=== PATIENT | female | born 1950 | race Caucasian/White ===

== ENCOUNTER 2017-09-28 06:55 | Day surgery (SDC) | payer BC, MEDICARE ==
[2017-09-27 15:26] LABS: BASOPHILS % (AUTO) 0.7 % (0.0-5.0); EOSINOPHILS % (AUTO) 2.2 % (0.0-8.0); HEMATOCRIT 36.6 % (36-48); LYMPHOCYTES % (AUTO) 26.5 % (21.0-51.0); MEAN CORPUSCULAR HEMOGLOBIN 31.5 pg (27.0-33.0); MEAN CORPUSCULAR HGB CONC 34.7 g/dL (32.0-36.0); MEAN CORPUSCULAR VOLUME 90.9 fL (79-99); MONOCYTES % (AUTO) 5.4 % (3.0-13.0); NEUTROPHILS % (AUTO) 65.2 % (40.0-77.0); PLATELET COUNT (AUTO) 259 K/uL (130-400); RED BLOOD CELL COUNT(AUTO) 4.02 MIL/uL (4.00-5.50); RED CELL DISTRIBUTION WIDTH 12.7 % (11.0-15.5); WHITE BLOOD COUNT (AUTO) 6.8 K/uL (4.8-10.8)
[2017-09-27 15:35] VITALS: BP 150/79
[~2017-09-28] VITALS: Ht 167.6 cm; Wt 92.4 kg
[2017-09-28] VITALS (18 sets, daily range): BP systolic 106–152; BP diastolic 63–81
[~2017-09-28 06:55] MED LIST: BUPR300T53 PO; CALDOLOR 800MG+NS 250ML 250 ML IV SCH; LACTATED RINGERS 1000ML 1,000 ML IV SCH; LEVO75TA6 PO
[2017-09-28] MEDS ORDERED: DEXAMETHASONE SOD PHOSPHATE 10MG/ML 1ML VIAL ONE (07:54)
[2017-09-28] MEDS ORDERED: GLYCOPYRROLATE 0.2 MG/ML 5 ML VIAL ONE (07:54)
[2017-09-28] MEDS ORDERED: LIDOCAINE PF 2% 5ML ABBOJECT ONE (07:54)
[2017-09-28] MEDS ORDERED: FENTANYL CITRATE PF 50 MCG/1 ML 2ML VIAL ONE (07:55)
[2017-09-28] MEDS ORDERED: PROPOFOL 10 MG/ML 20ML VIAL IV ONE (07:55)
[2017-09-28] MEDS ORDERED: MIDAZOLAM HCL 1 MG/ML 2ML VIAL ONE (07:55)
[2017-09-28] MEDS: CEFAZOLIN SODIUM 1 GM VIAL IVP SCH ×2 (08:00→08:35)
[2017-09-28] MEDS ORDERED: MEPERIDINE-PF 25 MG/ML SYG ONE ×2 (09:15→09:25)
== END 2017-09-28 11:19 | disposition home or self-care (01) ==
LOC: DAH 06:55
PROVIDERS: ATTEND Obstetrics & Gynecology
DX: N95.0 Postmenopausal bleeding (principal); N85.8 Other specified noninflammatory disorders of uterus; E03.8 Other specified hypothyroidism; F41.9 Anxiety disorder, unspecified; Z79.899 Other long term (current) drug therapy; Z90.49 Acquired absence of other specified parts of digestive tract; Z98.890 Other specified postprocedural states
CPT/HCPCS: 36415; 58558; 85025; 86850; 86900; 86901; 88305; A4218; A4351; A4355; A4510; A4600; J0690; J1100; J1741; J2001; J2175 ×2; J2250; J2704; J3010; J3490; J7030 ×2; J7120

== ENCOUNTER → 2020-03-25 | Outpatient (CLI) | payer BC, MEDICARE ==
[~2020-03-25] MED LIST changes: -CALDOLOR 800MG+NS 250ML 250 ML IV SCH; -LACTATED RINGERS 1000ML 1,000 ML IV SCH
== END | disposition home or self-care (01) ==
LOC: RAH 11:58
PROVIDERS: ATTEND Physical Medicine & Rehabilitation
DX: M47.814 Spondylosis without myelopathy or radiculopathy, thoracic region (principal); M48.04 Spinal stenosis, thoracic region; M47.812 Spondylosis without myelopathy or radiculopathy, cervical region; M48.061 Spinal stenosis, lumbar region without neurogenic claudication; R07.81 Pleurodynia
CPT/HCPCS: 71101; 72052; 72074

== ENCOUNTER → 2020-07-02 | Outpatient (CLI) | payer MEDICARE | END | disposition home or self-care (01) | LOC: RAH 10:59 | PROVIDERS: ATTEND Physical Medicine & Rehabilitation | DX: M17.11 Unilateral primary osteoarthritis, right knee (principal) | CPT/HCPCS: 73564 ==

== ENCOUNTER → 2020-11-04 | Outpatient (CLI) | payer MEDICARE | END | disposition home or self-care (01) | LOC: RAH 08:34 | PROVIDERS: ATTEND Physical Medicine & Rehabilitation | DX: M19.012 Primary osteoarthritis, left shoulder (principal); M19.011 Primary osteoarthritis, right shoulder | CPT/HCPCS: 73030 ==

== ENCOUNTER → 2021-01-03 | Outpatient (CLI) | payer MEDICARE | END | disposition home or self-care (01) | LOC: RAH 15:04 | PROVIDERS: ATTEND Physical Medicine & Rehabilitation | DX: M19.011 Primary osteoarthritis, right shoulder (principal); M25.411 Effusion, right shoulder | CPT/HCPCS: 73221 ==

== ENCOUNTER → 2021-02-07 | Outpatient (CLI) | payer MEDICARE ==
[~2021-02-07] MED LIST changes: +GADOTERATE MEGLUMINE 10 MMOL/20 ML VIAL IV ONE
== END | disposition home or self-care (01) ==
LOC: RAH 08:57
PROVIDERS: ATTEND Physical Medicine & Rehabilitation
DX: M75.101 Unspecified rotator cuff tear or rupture of right shoulder, not specified as traumatic (principal); M25.411 Effusion, right shoulder; M00.9 Pyogenic arthritis, unspecified
CPT/HCPCS: 73223; A9575

== ENCOUNTER 2021-05-17 08:59 | Observation (INO) | payer MEDICARE ==
[2021-05-16 10:36] VITALS: BP 137/73
[2021-05-17] VITALS (18 sets, daily range): BP systolic 97–154; BP diastolic 46–74
[~2021-05-17] VITALS: Ht 167.6 cm; Wt 91.2 kg
[~2021-05-17 08:59] MED LIST changes: +AEC81 PO; +ATOR20TA65 PO; -BUPR300T53 PO; +CEFAZOLIN SODIUM 1 GM VIAL IVP ONE; +GABA-529 PO; -GADOTERATE MEGLUMINE 10 MMOL/20 ML VIAL IV ONE; +LACTATED RINGERS 1000ML 1,000 ML IV SCH; -LEVO75TA6 PO; +LOSA25TA41 PO; +OMEP-459 PO; +PRED5DRO25 OS; +ROPIVICAINE 250MG+KETOROLAC 15MG+EPINEPHRINE 0.3+CLONIDINE 80 IV PRN; +[UNRECOGNIZED DRUG - OTHER] PO
[2021-05-17] MEDS ORDERED: CEFAZOLIN SODIUM 1 GM VIAL ONE (09:33)
[2021-05-17] MEDS ORDERED: PANTOPRAZOLE 40 MG TAB DR PO PRN (11:30)
[2021-05-17] MEDS ORDERED: OMEPRAZOLE MAGNESIUM 40 MG PO PRN (11:30)
[2021-05-17] MEDS: 0.9%NACL 1000ML 1,000 ML IV SCH ×2 (11:30→21:05)
[2021-05-17] MEDS: ACETAMINOPHEN 500 MG TABLET PO SCH ×3 (11:30→21:04)
[2021-05-17] MEDS ORDERED: OXYCODONE HCL 5 MG TAB PO PRN (11:30)
[2021-05-17] MEDS ORDERED: ROPIVACAINE 0.5% 5MG/ML 30ML IJ ONE (11:52)
[2021-05-17] MEDS ORDERED: MIDAZOLAM HCL 1 MG/ML 2ML VIAL ONE (11:56)
[2021-05-17] MEDS ORDERED: FENTANYL CITRATE PF 50 MCG/1 ML 2ML VIAL ONE (11:56)
[2021-05-17] MEDS ORDERED: SUCCINYLCHOLINE CHLORIDE 20 MG/ML 10 ML VIAL ONE (11:56)
[2021-05-17] MEDS ORDERED: PROPOFOL 10 MG/ML 20ML VIAL IV ONE (11:56)
[2021-05-17] MEDS ORDERED: CLINDAMYCIN IVPB 600MG/50ML 50 ML IV ONE (11:57)
[2021-05-17] MEDS ORDERED: TRANEXAMIC ACID 1000MG/10ML ONE (12:12)
[2021-05-17] MEDS ORDERED: GLYCOPYRROLATE 1 MG/5 ML SYRINGE ONE (13:21)
[2021-05-17] MEDS ORDERED: ONDANSETRON 4MG INJ ONE (14:26)
[2021-05-17] MEDS ORDERED: CLINDAMYCIN IVPB 600MG/50ML 50 ML IV SCH ×2 (17:00→20:13)
[2021-05-17] MEDS: GABAPENTIN 100 MG CAPSULE PO SCH (21:04)
[2021-05-17] MEDS: MORPHINE 4 MG SYG IVP PRN (22:10)
[2021-05-17] MEDS: ONDANSETRON 4MG INJ IVP PRN (22:10)
[2021-05-18] MEDS: MORPHINE 4 MG SYG IVP PRN (03:34)
[2021-05-18] MEDS: ONDANSETRON 4MG INJ IVP PRN (03:34)
[2021-05-18 04:03] LABS: HEMATOCRIT 29.5 % (36-48); MEAN CORPUSCULAR HEMOGLOBIN 29.7 pg (27.0-33.0); MEAN CORPUSCULAR HGB CONC 31.9 g/dL (32.0-36.0); MEAN CORPUSCULAR VOLUME 93.4 fL (79-99); RED BLOOD CELL COUNT(AUTO) 3.16 MIL/uL (4.00-5.50); RED CELL DISTRIBUTION WIDTH 12.9 % (11.0-15.5); WHITE BLOOD COUNT (AUTO) 7.4 K/uL (4.8-10.8)
[2021-05-18 04:16] LABS: CREATININE 0.9 mg/dL (0.5-1.5); POTASSIUM 4.1 mmol/L (3.5-5.1)
[2021-05-18 04:57] VITALS: BP 111/63
[2021-05-18] MEDS: ACETAMINOPHEN 500 MG TABLET PO SCH ×3 (06:05→22:00)
[2021-05-18 07:30] VITALS: BP 111/62
[2021-05-18] MEDS: 0.9%NACL 1000ML 1,000 ML IV SCH (07:30)
[2021-05-18] MEDS: ATORVASTATIN 20 MG TABLET PO SCH (08:00)
[2021-05-18] MEDS: GABAPENTIN 100 MG CAPSULE PO SCH ×2 (08:00→19:48)
[2021-05-18] MEDS: ASPIRIN 81 MG EC TAB PO SCH (08:00)
[2021-05-18] MEDS: HYDROCODONE/ACETAMINOPHEN 5/325 MG TAB PO PRN ×4 (08:01→22:21)
[2021-05-18] MEDS: LOSARTAN 25 MG TABLET PO SCH (08:05)
[2021-05-18] MEDS: POLYETHYLENE GLYCOL 3350 17 GM POWD.PACK PO SCH (08:05)
[2021-05-18] MEDS: PREDNISOLONE 1% DROPS OS SCH (09:00)
[2021-05-18 11:00] VITALS: BP 107/55
[2021-05-18 15:28] VITALS: BP 125/56
[2021-05-18 20:00] VITALS: BP 130/59
[2021-05-18 23:28] VITALS: BP 105/49
[2021-05-19] MEDS: HYDROCODONE/ACETAMINOPHEN 5/325 MG TAB PO PRN ×2 (03:19→09:10)
[2021-05-19 03:56] VITALS: BP 120/63
[2021-05-19] MEDS: ACETAMINOPHEN 500 MG TABLET PO SCH ×2 (06:12→14:05)
[2021-05-19 07:30] VITALS: BP 114/59
[2021-05-19] MEDS: PREDNISOLONE 1% DROPS OS SCH (09:00)
[2021-05-19] MEDS: ASPIRIN 81 MG EC TAB PO SCH (09:09)
[2021-05-19] MEDS: GABAPENTIN 100 MG CAPSULE PO SCH (09:09)
[2021-05-19] MEDS: LOSARTAN 25 MG TABLET PO SCH (09:09)
[2021-05-19] MEDS: POLYETHYLENE GLYCOL 3350 17 GM POWD.PACK PO SCH (09:09)
[2021-05-19] MEDS: ATORVASTATIN 20 MG TABLET PO SCH (09:09)
[2021-05-20] MEDS ORDERED: BISACODYL 10 MG SUPP.RECT RC PRN (11:30)
== END 2021-05-19 18:00 | disposition home or self-care (01) ==
LOC: DAH 08:59 → DAHIP 09:00 → DAH 09:00 → 4AH 18:43
PROVIDERS: ADMIT Orthopaedic Surgery; ATTEND Orthopaedic Surgery
DX: M19.011 Primary osteoarthritis, right shoulder (principal); Z20.822 Contact with and (suspected) exposure to COVID-19; M24.511 Contracture, right shoulder; Z79.82 Long term (current) use of aspirin
CPT/HCPCS: 23470; 36415; 73030 ×2; 80048; 85027; 87635; 87641; 88305; 88311; 96365; 96375; 96376; 97039 ×3; 97116 ×4; 97161; 97530 ×4; A4215 ×2; A4221; A4222; A4223; A4565; A4600; A4649 ×3; A4663; A4930 ×3; A6260; C1776; C9803; G0378 ×49; J0330; J2250; J2270 ×2; J2405 ×3; J2704; J2795; J3010; J3490 ×4; J7030; J7120 ×2; J0690

== ENCOUNTER → 2023-06-25 | Outpatient (CLI) | payer MEDICARE ==
[~2023-06-25] MED LIST changes: -CEFAZOLIN SODIUM 1 GM VIAL IVP ONE; -LACTATED RINGERS 1000ML 1,000 ML IV SCH; -ROPIVICAINE 250MG+KETOROLAC 15MG+EPINEPHRINE 0.3+CLONIDINE 80 IV PRN
== END | disposition home or self-care (01) ==
LOC: RAH 10:56
PROVIDERS: ATTEND Physical Medicine & Rehabilitation
DX: M43.16 Spondylolisthesis, lumbar region (principal); M54.51 Vertebrogenic low back pain; M99.05 Segmental and somatic dysfunction of pelvic region; M48.07 Spinal stenosis, lumbosacral region
CPT/HCPCS: 72114

== ENCOUNTER → 2024-08-20 | Outpatient (CLI) | payer MEDICARE ==
--- NOTE | 2024-08-20 11:38 | HMCIMG ---
CERV SPINE 4-5 VWS REASON: CERVICAL FACET JOINT SYNDROME COMPARISON: None TECHNIQUE: 5 views cervical spine series was performed including flexion and extension views. FINDINGS: There is moderate interspace narrowing C3, C4 with mild narrowing at C5 and C6. There are small anterior osteophytes. There are mild degenerative changes in the facets, most pronounced at C4-5. There are mild degenerative changes in the facets. Vertebral body alignment is normal in the neutral view. There is no change in posterior vertebral body alignment between flexion and extension views. Surrounding soft tissues appear unremarkable. IMPRESSION: 1. Mild to moderate cervical degenerative change. 2. No evidence of subluxation on flexion and extension views.
== END | disposition home or self-care (01) ==
LOC: RAH 09:36
PROVIDERS: ATTEND Physical Medicine & Rehabilitation
DX: M47.812 Spondylosis without myelopathy or radiculopathy, cervical region (principal); M48.02 Spinal stenosis, cervical region; M25.78 Osteophyte, vertebrae
CPT/HCPCS: 72050